=== PATIENT | female | born 1995 | race African-American/Black ===

== ENCOUNTER 2024-02-29 16:10 | Inpatient (IN) | payer OTHER ==
[2024-02-29] MEDS: ELECTROLYTE-148 SOLN 1,000 ML IV SCH (16:30)
[2024-02-29 17:13] LABS: BASO % 0.5 % (0-2.0); HEMATOCRIT 35.4 % (32.4-45.2); HEMOGLOBIN 11.7 GM/dL (10.7-15.3); LYMPH % 17.4 % (8-40); MCH 27.4 pg (25.7-33.7); MEAN CELL VOLUME 82.9 fl (80-96); MEAN PLT VOLUME 8.1 fl (7.5-11.1); MONO % 10.3 % (3.8-10.2); NEUT % 70.8 % (42.8-82.8); PLATELET COUNT 264 10^3/uL (134-434); RBC 4.27 M/mm3 (3.60-5.2); WHITE BLOOD COUNT 8.9 K/mm3 (4.0-10.0)
[2024-02-29 17:14] VITALS: BMI 31.8
[2024-02-29 17:28] LABS: INR 0.96 (0.83-1.09); PROTHROMBIN TIME (PATIENT) 11.1 SEC (9.7-13.0)
[2024-02-29 17:31] LABS: ACTIVATED PTT 30.9 SECONDS (25.2-36.5)
[2024-02-29 17:40] LABS: POTASSIUM 3.8 mmol/L (3.5-5.1)
[2024-02-29 17:42] LABS: BLOOD UREA NITROGEN 5.7 mg/dL (7-18); CALCIUM 8.8 mg/dL (8.5-10.1)
[2024-02-29 17:44] LABS: CREATININE 0.7 mg/dL (0.55-1.3)
[2024-02-29] MEDS ORDERED: OXYTOCIN 30 UNITS in 0.9% NS 30 UNIT/500 ML INFUS.BAG IVPB ONE (17:59)
[2024-02-29] MEDS: OXYTOCIN 30 UNITS in 0.9% NS 30 UNIT/500 ML INFUS.BAG IVPB SCH (18:00)
[2024-02-29 20:06] LABS: HIV INTERPRETATION NEGATIVE (NEGATIVE)
[2024-03-01] MEDS ORDERED: PROMETHAZINE HCL 25 MG/1 ML VIAL ONE (01:11)
[2024-03-01] MEDS ORDERED: BUTORPHANOL TARTRATE 2 MG/ML VIAL ONE (01:11)
[2024-03-01] MEDS: PROMETHAZINE HCL 25 MG/1 ML VIAL IVPB ONE (01:30)
[2024-03-01] MEDS: BUTORPHANOL TARTRATE 2 MG/ML VIAL IVPB ONE (01:30)
[2024-03-01] MEDS: AMPICILLIN - 2 GM in SODIUM CHLORIDE 100 ML IVPB ONE (06:00)
[2024-03-01] MEDS ORDERED: SODIUM CHLORIDE 100 ML IVPB ONE (06:00)
[2024-03-01] MEDS ORDERED: AMPICILLIN SODIUM 2 GM VIAL ONE (06:00)
[2024-03-01] MEDS ORDERED: FENTANYL/BUPIVACAINE/NS/PF - PCEA - 50 ML DISP.SYRIN EP ONE ×2 (07:14→11:24)
[2024-03-01] MEDS ORDERED: FENTANYL CITRATE/PF 50 MCG/ML VIAL ONE ×4 (07:21→13:41)
[2024-03-01] MEDS ORDERED: BUPIVACAINE HCL/PF 0.25% (2.5MG/ML) 10 ML VIAL ONE ×2 (07:21→09:04)
[2024-03-01] MEDS: FENTANYL/BUPIVACAINE/NS/PF - PCEA - 50 ML DISP.SYRIN EP SCH (07:40)
[2024-03-01] MEDS ORDERED: NALOXONE HCL 0.4 MG/ML VIAL IVPUSH PRN (08:02)
[2024-03-01] MEDS ORDERED: LIDO 2%/EPI 1:200000 PRESRVFRE (20 ML SDVIAL) ONE (09:04)
[2024-03-01] MEDS ORDERED: AMPICILLIN - 1 GM in SODIUM CHLORIDE 100 ML IVPB SCH (10:00)
[2024-03-01] MEDS ORDERED: AMPICILLIN SODIUM 1 GM VIAL ONE (10:40)
[2024-03-01] MEDS: AMPICILLIN - 1 GM in SODIUM CHLORIDE 100 ML IVPB SCH ×2 (10:40→19:57)
[2024-03-01] MEDS ORDERED: AZITHROMYCIN IVPB 500 MG/250 ML BAG IVPB ONE (13:39)
[2024-03-01] MEDS ORDERED: OXYTOCIN 30 UNITS in 0.9% NS 30 UNIT/500 ML INFUS.BAG IVPB ONE (13:39)
[2024-03-01] MEDS ORDERED: ONDANSETRON 4 MG/2 ML VIAL ONE (13:41)
[2024-03-01] MEDS ORDERED: ceFAZolin SODIUM 1 GM VIAL ONE ×2 (13:41→13:57)
[2024-03-01] MEDS ORDERED: morphine SULFATE/PF 1 MG/2 ML (2cc Syringe - QUVA) ONE (13:41)
[2024-03-01] MEDS ORDERED: OXYTOCIN 20 UNITS in 0.9% NS 20 UNIT/1,000 ML INFUS.BAG IV ONE ×2 (13:52→18:01)
[2024-03-01] MEDS ORDERED: DEXAMETHASONE SOD PHOSPHATE 4 MG/1 ML VIAL ONE (14:23)
[2024-03-01] MEDS ORDERED: METHYLERGONOVINE MALEATE 0.2 MG/1 ML AMP IM PRN (14:51)
[2024-03-01] MEDS ORDERED: ONDANSETRON 4 MG/2 ML VIAL IVPUSH PRN (14:52)
[2024-03-01] MEDS ORDERED: ACETAMINOPHEN 1000 MG/100 ML BAG IVPB PRN (14:57)
[2024-03-01] MEDS ORDERED: IBUPROFEN 800 MG/8 ML IJ IVPB ONE (16:07)
[2024-03-01] MEDS: IBUPROFEN 800 MG/8 ML IJ IVPB PRN (16:20)
[2024-03-01] MEDS ORDERED: METHYLERGONOVINE MALEATE 0.2 MG TABLET (FP) ONE (17:01)
[2024-03-01] MEDS: METHYLERGONOVINE MALEATE 0.2 MG TABLET (FP) PO ONE (17:05)
[2024-03-01 17:29] LABS: CORD BASE EXCESS -5.9 mmol/L (0-2); CORD HCO3 21.7 mmHg (20-29); CORD PCO2 50.4 mmHg (30-78); CORD pH 7.252 (7.14-7.44)
[2024-03-01] MEDS: OXYTOCIN 20 UNITS in 0.9% NS 20 UNIT/1,000 ML INFUS.BAG IV SCH (18:00)
[2024-03-01] MEDS: morphine SULFATE/PF 1 MG/2 ML (2cc Syringe - QUVA) SPIN ONE (19:56)
[2024-03-02] MEDS: oxyCODONE HCL 5 MG TABLET PO PRN ×2 (03:04→22:47)
[2024-03-02] MEDS: SIMETHICONE 80 MG TAB.CHEW (FP) PO PRN (03:04)
[2024-03-02 07:20] LABS: BASO % 0.1 % (0-2.0); EOS % 0.1 % (0-4.5); HEMATOCRIT 32.9 % (32.4-45.2); HEMOGLOBIN 10.5 GM/dL (10.7-15.3); LYMPH % 12.2 % (8-40); MCH 26.9 pg (25.7-33.7); MEAN CELL VOLUME 84.1 fl (80-96); MEAN PLT VOLUME 8.3 fl (7.5-11.1); MONO % 9.5 % (3.8-10.2); NEUT % 78.1 % (42.8-82.8); PLATELET COUNT 250 10^3/uL (134-434); RBC 3.92 M/mm3 (3.60-5.2); RDW 13.8 % (11.6-15.6); WHITE BLOOD COUNT 16.6 K/mm3 (4.0-10.0)
[2024-03-02] MEDS: PRENATAL VITAMINS W/ FOLIC ACID TABLET (FP) PO SCH (09:00)
[2024-03-02] MEDS: ENOXAPARIN NA (PORCINE) 40 MG/0.4 ML DISP.SYRIN SQ SCH (09:00)
[2024-03-02] MEDS: IBUPROFEN 600 MG TABLET (FP) PO PRN (12:49)
[2024-03-02] MEDS ORDERED: BISACODYL 10 MG SUPP.RECT RC PRN (14:51)
[2024-03-02] MEDS: ACETAMINOPHEN 325 MG TABLET (FP) PO PRN (21:49)
[2024-03-03] MEDS: ACETAMINOPHEN/CAFFEINE/BUTALBITAL 1 TAB PO PRN (09:54)
[2024-03-03] MEDS: LACTATED RINGERS SOLUTION 1,000 ML/1,000 ML INFUS.BAG IV SCH (10:40)
[2024-03-03] MEDS: ACETAMINOPHEN/CAFFEINE/BUTALBITAL 1 TAB PO SCH (19:58)
[2024-03-03] MEDS: IBUPROFEN 600 MG TABLET (FP) PO SCH (22:20)
[2024-03-04] MEDS: ACETAMINOPHEN/CAFFEINE/BUTALBITAL 1 TAB PO SCH (01:39)
[2024-03-04 07:31] LABS: BASO % 0.5 % (0-2.0); EOS % 3.5 % (0-4.5); HEMATOCRIT 29.9 % (32.4-45.2); HEMOGLOBIN 9.9 GM/dL (10.7-15.3); LYMPH % 35.1 % (8-40); MCH 27.9 pg (25.7-33.7); MCHC 33.2 g/dl (32.0-36.0); MEAN CELL VOLUME 84.1 fl (80-96); NEUT % 51.9 % (42.8-82.8); PLATELET COUNT 248 10^3/uL (134-434); RBC 3.55 M/mm3 (3.60-5.2); RDW 14.2 % (11.6-15.6); WHITE BLOOD COUNT 6.5 K/mm3 (4.0-10.0)
[2024-03-04] MEDS: IBUPROFEN 600 MG TABLET (FP) PO ONE (10:45)
[2024-03-04] MEDS: ACETAMINOPHEN 325 MG TABLET (FP) PO SCH (11:00)
[2024-03-04 14:18] VITALS: TEMP 98.2
[2024-03-04 18:59] VITALS: BP 98/54; PULSE 90; RESP 17
== END 2024-03-04 18:10 | disposition home or self-care (01) | DRG 540 ==
LOC: JLDR 16:10 → J3W 03-01 18:10
PROVIDERS: ADMIT Specialist; ATTEND Specialist
PROC: 10D00Z1 Extraction of Products of Conception, Low, Open Approach (ICD-10-PCS; principal; 2024-03-01)
DX: O61.0 Failed medical induction of labor (principal); O48.0 Post-term pregnancy; O62.1 Secondary uterine inertia; O99.820 Streptococcus B carrier state complicating pregnancy; Z3A.40 40 weeks gestation of pregnancy; Z37.0 Single live birth
CPT/HCPCS: 36415; 36600; 80048; 82803; 85025; 85610; 85730; 86780; 86803; 86850; 86900; 86901; 87389; 88307-TC